=== PATIENT | female | born 1960 | race Caucasian/White ===

== ENCOUNTER 2016-08-31 12:35 | Emergency (ER) | payer OTHER ==
[~2016-08-31 12:35] MED LIST: B121000P IM; C5 PO; CELEXA20 PO; COR40 PO; DIL4TAB PO; ESTRACE1 MG PO; FIORICET OR; KLONO1 PO; LOTE5 PO; METHATAB40 PO; METHOC500B PO; MOBIC15 MG PO; NORV25 PO; OXYCOD PO; PERCOCET1 TAB PO; PRIN2.5 PO; PROAIR HFA INH; PROTONIX20 MG PO; TYLENOL PM; ZOFRAN4 PO
[2016-08-31 13:25] LABS: BASOPHILS 0.2 %; BASOPHILS ABSOLUTE 0.02 10/3/uL (0.0-0.16); EOSINOPHILS 0.8 %; EOSINOPHILS ABSOLUTE 0.07 10/3/uL (0.0-0.53); ER CBC TAT 0 Hrs 03 Mins; HEMATOCRIT 42.6 % (36.0-48.0); HEMOGLOBIN 13.6 g/dL (12.0-16.0); IMMATURE GRANULOCYTES 0.1 %; IMMATURE GRANULOCYTES ABSOLUTE 0.01 10/3/uL (0.0-0.11); LYMPHOCYTES 22.8 %; LYMPHOCYTES ABSOLUTE 1.99 10/3/uL (0.67-4.30); MEAN CORPUS HGB CONC 31.9 g/dL (32.0-36.0); MEAN CORPUSCULAR HEMOGLOB 26.6 pg (26.0-34.0); MEAN CORPUSCULAR VOLUME 83.2 fL (80-100); MEAN PLATELET VOLUME 9.3 fL (9.2-13.0); MONOCYTES 4.6 %; NEUTROPHILS 71.5 %; NEUTROPHILS ABSOLUTE 6.23 10/3/uL (2.02-8.40); PLATELET COUNT 367 10/3/uL (150-400); RBC DISTRIBUTION WIDTH 13.8 % (12.0-16.0); RED CELL COUNT 5.12 10/6/uL (4.0-5.6); WHITE BLOOD CELLS 8.7 10/3/uL (4.5-10.5)
[2016-08-31 13:26] LABS: MANUAL DIFF NO %
[2016-08-31 13:37] LABS: BUN (BLOOD UREA NITROGEN) 9 MG/DL (6-23); CALCIUM, SERUM 9.6 MG/DL (8.5-10.4); CHLORIDE, SERUM 109 MMOL/L (96-112); CO2 (CARBON DIOXIDE) 28 MMOL/L (24-34); CREATININE 1.05 MG/DL (0.55-1.02); GFR AFRICAN AMERICAN 70 ML/MIN (>=60); GFR NON AFRICAN AMERICAN 60 ML/MIN (>=60); GLUCOSE, SERUM 115 MG/DL (60-99); POTASSIUM, SERUM 3.7 MMOL/L (3.5-5.3); SODIUM, SERUM 144 MMOL/L (135-148)
[2016-08-31 14:04] LABS: SED RATE 51 MM/HR (0-20)
== END 2016-08-31 14:45 | disposition home or self-care (01) ==
LOC: ER 12:35
PROVIDERS: Physician Assistant
DX: R51 Headache (principal); Z88.2 Allergy status to sulfonamides; Z79.899 Other long term (current) drug therapy
CPT/HCPCS: 70450; 80048; 85025; 85652; 99284; A9270-GY

== ENCOUNTER 2016-09-12 12:26 | Emergency (ER) | payer OTHER ==
[2016-09-12 12:49] LABS: BASOPHILS 0.1 %; BASOPHILS ABSOLUTE 0.01 10/3/uL (0.0-0.16); EOSINOPHILS 1.8 %; EOSINOPHILS ABSOLUTE 0.18 10/3/uL (0.0-0.53); HEMATOCRIT 39.4 % (36.0-48.0); HEMOGLOBIN 12.4 g/dL (12.0-16.0); IMMATURE GRANULOCYTES 0.2 %; IMMATURE GRANULOCYTES ABSOLUTE 0.02 10/3/uL (0.0-0.11); LYMPHOCYTES 22.1 %; LYMPHOCYTES ABSOLUTE 2.25 10/3/uL (0.67-4.30); MANUAL DIFF NO %; MEAN CORPUS HGB CONC 31.5 g/dL (32.0-36.0); MEAN CORPUSCULAR HEMOGLOB 26.3 pg (26.0-34.0); MEAN CORPUSCULAR VOLUME 83.5 fL (80-100); MEAN PLATELET VOLUME 9.2 fL (9.2-13.0); MONOCYTES 7.7 %; MONOCYTES ABSOLUTE 0.78 10/3/uL (0.21-1.20); NEUTROPHILS 68.1 %; NEUTROPHILS ABSOLUTE 6.95 10/3/uL (2.02-8.40); PLATELET COUNT 291 10/3/uL (150-400); RBC DISTRIBUTION WIDTH 14.4 % (12.0-16.0); RED CELL COUNT 4.72 10/6/uL (4.0-5.6); WHITE BLOOD CELLS 10.2 10/3/uL (4.5-10.5)
[2016-09-12 12:56] LABS: PARTIAL THROMBO TIME 28.7 SEC (22.5-37.2); PROTIME (NOT ORD) 13.3 SEC (12.0-14.5)
[2016-09-12 13:07] LABS: BUN (BLOOD UREA NITROGEN) 12 MG/DL (6-23); CALCIUM, SERUM 8.8 MG/DL (8.5-10.4); CHEST PAIN PROFILE TAT 0 Hrs 22 Mins; CHLORIDE, SERUM 106 MMOL/L (96-112); CO2 (CARBON DIOXIDE) 29 MMOL/L (24-34); CREATININE 0.89 MG/DL (0.55-1.02); GFR AFRICAN AMERICAN 85 ML/MIN (>=60); GFR NON AFRICAN AMERICAN 73 ML/MIN (>=60); POTASSIUM, SERUM 4.3 MMOL/L (3.5-5.3); SODIUM, SERUM 140 MMOL/L (135-148); TROPONIN I 0.02 NG/ML (<0.05)
[2016-09-12 13:09] LABS: GLUCOSE, SERUM 84 MG/DL (60-99)
[2016-09-12] MEDS ORDERED: NEUR600 PO (14:05)
[2016-09-12] MEDS ORDERED: ASABAYER PO (14:05)
[2016-09-12] MEDS ORDERED: PRIN2.5 PO (14:05)
[2016-09-12] MEDS ORDERED: DOX10 PO (14:05)
[2016-09-12] MEDS ORDERED: PRISTIQ50 MG PO (14:06)
[2016-09-12] MEDS ORDERED: LOP25 PO (14:06)
[2016-09-12] MEDS ORDERED: TRAZ100 PO (14:06)
[2016-09-12] MEDS ORDERED: PRAVAC PO (14:06)
[2016-09-12] MEDS ORDERED: TRILEP300 PO (14:07)
[2016-09-12] MEDS ORDERED: NORCO1 TA2 PO (14:08)
== END 2016-09-12 14:48 | disposition home or self-care (01) ==
LOC: ER 12:26
PROVIDERS: Emergency Medicine
DX: R55 Syncope and collapse (principal); G50.0 Trigeminal neuralgia; I10 Essential (primary) hypertension; Z88.2 Allergy status to sulfonamides; Z79.82 Long term (current) use of aspirin; Z79.899 Other long term (current) drug therapy
CPT/HCPCS: 71010; 80048; 83735; 84484; 85025; 85610; 85730; 92950; 93005; 96374; 96375; 99284

== ENCOUNTER 2016-09-14 20:18 | Inpatient (IN) | payer OTHER ==
--- NOTE | ~2016-09-14 | CN ---
Consultation Report [facility] [address] [place]. [address] NAME: JIM JORDAN : 62 STATUS : ADM Tabitha PAT#: [id number] AGE: 55 ADM/REG DATE : 09/14/16 MR#: [id number] REPORT SERV DATE: 09/15/16 DICTATED BY: DATE: REPORT STATUS : Draft TRANSCRIBED BY: MODL DATE: 09/15/16 NEUROLOGY CONSULTATION DATE OF CONSULTATION: 09/15/2016 REASON FOR CONSULT: Headache as well as loss of consciousness episode. HISTORY OF PRESENT ILLNESS: This is a 55-year-old female presented to [facility] secondary to three week duration of headache. The patient reports the headache is always on the right side of the head from the cervical area radiating toward the face. The patient reports the pain as sharp, lasting anywhere from one to two minutes with frequent attacks. The patient otherwise denies tearing, conjunctiva, erythema, and denies any conjunctival injection. Denies any runny nose associated with this symptom. The patient reports episodes of frequent without relieving or aggravating factors. Symptoms occurred while the patient was off hydrocodone medications. The patient's symptom has been ongoing for the past three to four weeks. The patient denies photophobia, phonophobia, nausea, vomiting. Denies similar kind of headache in the past. The patient denies focal weakness or numbness. Denies dysarthria, dysphagia, or language difficulties. The patient denies diplopia. The patient does have a history of recent frequent loss of consciousness episode. The patient reports symptoms started again in the past three to four weeks, occur roughly 10 times over the past three to four weeks. The patient's most severe symptom occur on 09/14/2016 for which the patient suffered three loss of consciousness episodes, episodes are usually one to two minutes in duration with sometimes associated with shaking episodes. The patient was previously evaluated by ENT and was placed on trial of Trileptal, which she does not appear to have any improvement of the headache duration or characteristics. The patient denies any recent fever, chills, nausea, vomiting, chest pain, shortness of breath, or any other recent illness. The patient does have recent change in medication. The patient being placed on Trileptal as well as stop hydrocodone. The patient in addition reports stressful events. The patient recently hospitalized at [facility] for depression as well as anxiety. The patient reports that been very stressful for her. This occur in June. The patient otherwise denies any other changes in medication region. The patient denies any family history of headache. REVIEW OF SYSTEMS: The patient's review of systems negative except for those mentioned in the HPI. PAST MEDICAL HISTORY: Significant for depression as well as anxiety with recent hospitalization for depression and anxiety. The patient apparently also has had history of suicide attempt, history of obstructive sleep apnea, history of lung nodules as well as multinodular goiter, hypertension, history of previous headache and syncopal episodes per medical records. ALLERGIES: THE PATIENT WAS NOTED TO HAVE ALLERGY TO SULFA MEDICATION. Consultation Report [address] [address] NAME: JIM JORDAN : 62 STATUS : ADM Tabitha PAT#: [id number] AGE: 55 ADM/REG DATE : 09/14/16 MR#: [id number] REPORT SERV DATE: 09/15/16 DICTATED BY: DATE: REPORT STATUS : Draft TRANSCRIBED BY: MODL DATE: 09/15/16 SOCIAL HISTORY: Denies tobacco, alcohol, or recreational drug usage. FAMILY HISTORY: Significant for congestive heart failure as well as coronary artery disease. MEDICATIONS: The patient's home medication consists of aspirin, Pristiq, doxepin, Neurontin, Bourbon, lisinopril, Lopressor, Trileptal, pravastatin, and trazodone. PHYSICAL EXAMINATION: VITAL SIGNS: Overnight, the patient was noted to have vital signs with T-max of 99.7, heart rates of 61 to 88, respirations of 18 to 20, and blood pressure of 98 to 155 over 52 to 88. GENERAL: The patient is well developed, well nourished, in no acute distress. CARDIOVASCULAR: Regular rate and rhythm. No carotid bruits were otherwise auscultated. PULMONARY: Clear to auscultation bilaterally. NEUROLOGICAL: Generally, the patient is alert, oriented to person, place, year, and month, and follows simple and two-step commands. No dysarthria. No aphasia. Intact registration and recall. Cranial nerves 2 through 12. Pupils equal, round, and reactive to light. Extraocular eye movement was noted to be intact with intact peripheral vision. The patient demonstrated symmetrical facial expression and sensation. Midline tongue. Normal palatal movement. Normal hearing. The patient demonstrated 5/5 bilateral upper and lower extremity strength. Normal muscle, bulk, and tone. Deep tendon reflex was 2+ throughout. Downgoing toe on bilateral plantar reflexes. Normal yspjul-ey-ofih examination without ataxia. Normal gait and normal station at the time of evaluation. LABORATORY DATA: Laboratory study demonstrated white blood cell count of 9.0, hemoglobin of 13.1, hematocrit of 41.3, and platelet count of 305. Sedimentation rate of 37. Chemistry panel: Sodium 137, potassium 3.6, chloride 103, bicarb 29, BUN of 11, creatinine of 0.85, glucose of 94, calcium of 9.1. Folate of 7.8. Vitamin B12 of 421. TSH of 2.8, free T4 is 0.8. Urine drug screen is otherwise positive for opiates. Urinalysis demonstrated negative leukocyte esterase, negative nitrite. At time of evaluation, the patient was noted to have CT scan of her brain, which demonstrated no acute process. IMPRESSION: 1. Headache. 2. Loss of consciousness episodes. The patient reports headache mostly in the right posterior area involving greater occipital nerve territory with headache duration of short and frequent episodes. Headache concern for trigeminal cephalalgia versus a greater occipital neuralgia versus possible drug or medication withdrawal induce- headache. As the patient's headache is not relieved by Trileptal, we will discontinue Trileptal. We will start the patient on trial of Depakote as well as Indocin. We will obtain MRI of her brain and C-spine without contrast. If the patient's headache does not have any significant improvement, we will consider a greater occipital nerve block for headache relief. We will also obtain EEG for loss of consciousness episodes. RECOMMENDATION: 1. Discontinue Trileptal. Consultation Report [place] [id number] [place]. [address] NAME: JIM JORDAN : 62 STATUS : ADM Tabitha PAT#: [id number] AGE: 55 ADM/REG DATE : 09/14/16 MR#: [id number] REPORT SERV DATE: 09/15/16 DICTATED BY: DATE: REPORT STATUS : Draft TRANSCRIBED BY: MODL DATE: 09/15/16 2. Indocin 25 mg p.o. t.i.d. 3. Depakote 125 mg IV b.i.d. 4. MRI of the brain and C-spine without contrast. 5. EEG. [facility]/MODL Matt Newsome MD / [id number] CC: Landon Coe II, MD
--- NOTE | ~2016-09-14 | DS ---
Discharge Summary [facility] [address] [place]. [address] NAME: JIM JORDAN : 62 STATUS : DIS IN PAT#: [id number] AGE: 55 ADM/REG DATE : 09/14/16 MR#: [id number] REPORT SERV DATE: 09/26/16 DICTATED BY: TYLER YAÑEZ DATE: 09/19/16 REPORT STATUS : Draft TRANSCRIBED BY: TEODORO DATE: 09/19/16 ADMISSION DATE: 09/14/2016 DISCHARGE DATE: 09/19/2016 DIAGNOSES: 1. An occipital neuralgia causing intractable headache. 2. Syncope secondary to above, resolved. 3. Leukocytosis, resolved. 4. Hypertension. FOLLOWUP: 1. The patient is to follow up with her primary neurologist, Dr. Boateng for occipital neuralgia management and for possible nerve block injection recommended by hospital neurologist. 2. The patient is to follow up with primary care in one to two weeks. 3. The patient has been informed no driving. DISCHARGE MEDICATIONS: 1. Aspirin 325 mg p.o. daily. 2. Depakote 250 mg p.o. b.i.d. 3. Doxepin 10 mg p.o. q.h.s. 4. Pristiq 50 mg p.o. daily per home dose. 5. Neurontin 600 mg p.o. t.i.d. 6. Lisinopril 2.5 mg p.o. daily. 7. Metoprolol tartrate 12.5 mg p.o. b.i.d. 8. Pravachol 20 mg p.o. q.h.s. 9. Indocin 50 mg p.o. breakfast for two days only. 10.Trazodone 100 mg p.o. q.h.s. 11.Percocet 5/325 mg one tablet p.o. q.6 hours p.r.n., only 20 tablets prescribed. HOSPITALISTS: 1. Landon Sinha M.D. 2. Landon Coe II, M.D. CONSULTANTS: Neurology Dr. Matt Newsome, and Dr. Tommy Palafox. HOSPITAL COURSE: This is a 55-year-old female with a past medical history of intractable recurrent headaches for which on previous admission was suspected to be secondary to untreated obstructive sleep apnea. Also, the patient has a history of hypertension and obesity, presented with recurrent intractable headaches with syncope. She was admitted to the Hospitalist Service, initially seen by Dr. Coe with a Neurology consultation. Family were concerned of possible seizure-like activity prior to her admission. The patient had an EEG that revealed no focal abnormalities, no seizure activity or seizure discharges noted. The patient also had multiple imaging studies which included a CT of the brain without contrast that showed no acute intracranial abnormality, but had a stable old lacunar infarct versus Virchow-Lester space in the right basal ganglia. Discharge Summary [place] [id number] [facility] [place]. [address] NAME: JIM JORDAN : 62 STATUS : DIS IN PAT#: [id number] AGE: 55 ADM/REG DATE : 09/14/16 MR#: [id number] REPORT SERV DATE: 09/26/16 DICTATED BY: TYLER YAÑEZ DATE: 09/19/16 REPORT STATUS : Draft TRANSCRIBED BY: TEODORO DATE: 09/19/16 Also the patient had MRI of the brain and cervical spine that revealed a small amount of scattered nonspecific gliosis secondary to small vessel ischemic events. No acute infarction and no mass effect. No hydrocephalus. Also, the neck revealed some mild foraminal stenoses of bilateral C5-C6, but otherwise nondiagnostic. Due to her intractable headache the patient required multiple medications for control. She was initiated on Indocin as well as Depakote, and her Neurontin was continued and also the patient required narcotic medication. It was suspected the patient most likely has occipital neuralgia; however, prior to this conclusion the patient did have a lumbar puncture on 09/17/2016, ordered by Neurology with a normal opening pressure. The patient had some mild pleocytosis; however, cryptococcal antigen was negative. No signs of meningitis. However, the patient's HSV PCR was still pending at the time of discharge. Neurology recommended for the patient to follow up as an outpatient in Neurology Clinic by a Neurology Specialist for the nerve block injections. The patient states that she has an appointment with Dr. Boateng, neurologist, and therefore Dr. Palafox recommended for the patient to follow up with Dr. Boateng for workup of nerve block injections versus Botox. Overall the patient's symptoms improved during her hospital course. The patient also was advised no driving until approved by her neurologist. She did have an echocardiogram and had a normal ejection fraction of 55%. The patient was discharged to home in stable condition to follow up as an outpatient. This discharge required greater than 30 minutes. ADDENDUM The patient will not be discharged with indomethacin. DICTATED BY: Janel BarriosH/TEODORO Tyler Yañez M.D. / [id number] / [id number] CC: Janel Barrios MD Lisa Brooks, D.W. [facility]
--- NOTE | ~2016-09-14 | HP ---
History And Physical [place] [id number] [facility] [place]. [address] NAME: JIM BURGOS : 62 STATUS : REG ER PAT#: [id number] AGE: 55 ADM/REG DATE : 09/14/16 MR#: [id number] REPORT SERV DATE: 09/15/16 DICTATED BY: CHALINO ESCOBAR DATE: 09/14/16 REPORT STATUS : Draft TRANSCRIBED BY: MODL DATE: 09/14/16 DATE OF ADMISSION: 09/14/2016 POINT OF ENTRY: [facility] Emergency Department. PRIMARY CARE PHYSICIAN: Dr. Oma Sánchez. PRIMARY NEUROLOGIST: Dr. Sarabia. CHIEF COMPLAINT: Headaches and syncope. HISTORY OF PRESENT ILLNESS: Ms. Burgos is a 55-year-old female with a history of hypertension, multinodular goiter as well as a prior admission for suicide attempt who presents to the emergency department today with report of a three to four-week history of intractable right-sided headaches and recurrent syncopal episodes. Per review of [facility], it appears the patient was admitted to our service in 05/2013 for very similar complaints of headaches and syncopal episodes. At that time, she had an extensive workup including neurology evaluation, CT scan of the brain, MRI of the brain, echocardiogram, carotid arterial Dopplers as well as EEG, all of which were unremarkable. It was felt that her headaches were likely due to untreated obstructive sleep apnea. Patient states that for the past three to four weeks, she has had intractable right-sided headaches that are intermittent in nature. They occur every three to four minutes and consist of a short-duration, sharp and stabbing-type sensation on the right side of her head. She denies any associated nausea, vomiting, vision changes, photophobia, or phonophobia. She has undergone extensive workup as ordered by Dr. Sánchez as well as an oral furnace installer in the community including MRI done at [facility] that was reportedly negative as well as a temporal artery biopsy that also was reportedly negative. She was tentatively diagnosed with trigeminal neuralgia, placed on Trileptal and Neurontin; however, these medications have had no effect whatsoever on her headaches. Patient also states in the past three to four weeks she has also had recurrent syncopal episodes. These have been witnessed by her , typically unconscious for 30 seconds to about two minutes. states that she is typically somewhat confused and lethargic immediately after regaining consciousness and today she had a loss of bladder function. also states occasionally with her syncopal episode, she will have some convulsive- type activity. Patient presented to the emergency department. The labs were unremarkable, an EKG was also unremarkable, and CT scan of brain was not undertaken nor was urinalysis, drug screen, or chest x-ray. ER physician talked with Dr. Sarabia who recommended admission to the Hospitalist Service, placement on Neurontin; however, she is already on Neurontin as well as recommended MRI in the morning. REVIEW OF SYSTEMS: History And Physical [address] [address] NAME: JIM BURGOS : 62 STATUS : REG ER PAT#: [id number] AGE: 55 ADM/REG DATE : 09/14/16 MR#: [id number] REPORT SERV DATE: 09/15/16 DICTATED BY: CHALINO ESCOBAR DATE: 09/14/16 REPORT STATUS : Draft TRANSCRIBED BY: TEODORO DATE: 09/14/16 Comprehensive review of systems otherwise negative unless listed in history of present illness. PREVIOUS MEDICAL HISTORY: 1. Hypertension. 2. Multinodular goiter. 3. History of lung nodules. 4. Obstructive sleep apnea. 5. History of suicide attempt. 6. Previous admission for headaches and syncopal episodes, workup thus far unremarkable. 7. Presumed diagnosis of trigeminal neuralgia. SURGICAL HISTORY: 1. Left total knee. 2. Abdominal hysterectomy. 3. Hernia repair surgery. 4. C5-C7 ACDF. ALLERGIES: SULFA DRUGS. HOME MEDICATIONS: Pending at time of dictation. SOCIAL HISTORY: She denies any tobacco, alcohol, or illicits. FAMILY HISTORY: Mother with congestive heart failure. Father with congestive heart failure and coronary artery disease. LABS AND IMAGIN. White count 11.4, hemoglobin 13.5, hematocrit 42.2, platelets 295. 2. Sodium is 139, potassium 4.0, chloride 104, carbon dioxide 28, BUN 12, creatinine 0.85, glucose is 111, calcium is 8.9. 3. EKG per my review shows normal sinus rhythm without any acute ischemia or infarction. PHYSICAL EXAMINATION: VITAL SIGNS: Temperature is 97.6 degrees Fahrenheit, pulse is 80, respirations 18, saturating 93% on room air, blood pressure 130/72. GENERAL: Patient is awake, alert, in no acute distress, resting comfortably in bed. She is a well-developed, well-nourished, middle-aged female. is at bedside. HEENT: Atraumatic and normocephalic. Moist mucous membranes. Pupils are equal, round, reactive to light and accommodation. Extraocular eye movements intact. No scleral icterus. Neck: No jugular venous distention or carotid bruits. CARDIAC: Regular rate and rhythm. No murmurs, rubs, or gallops. Normal S1, S2. LUNGS: Clear to auscultation bilaterally. No wheezes, rhonchi, or rales. ABDOMEN: Soft, nontender, nondistended with good bowel sounds. No rebound, guarding, or rigidity. EXTREMITIES: Warm and well perfused. No cyanosis, clubbing, or edema. SKIN: Warm and dry. History And Physical [address] [address] NAME: JIM BURGOS : 62 STATUS : REG ER PAT#: [id number] AGE: 55 ADM/REG DATE : 09/14/16 MR#: [id number] REPORT SERV DATE: 09/15/16 DICTATED BY: CHALINO ESCOBAR DATE: 09/14/16 REPORT STATUS : Draft TRANSCRIBED BY: TEODORO DATE: 09/14/16 PSYCH: Affect appropriate. NEURO: Alert and oriented x3. Cranial nerves II through XII are grossly intact. Speech is normal. Gait not assessed. ASSESSMENT AND PLAN: Ms. Burgos is a 55-year-old female who presents with a three-week history of intractable right-sided headaches and recurrent syncopal episodes. PROBLEM LIST: 1. Intractable right-sided headache. 2. Recurrent syncopal episodes. 3. Concern for possible seizure-like activity. 4. Leukocytosis. PLAN: 1. Intractable right-sided headaches. Patient has had had extensive negative workup thus far including MRI and temporal artery biopsy. Her headaches have not been responsive to Trileptal or Neurontin as well. We will admit patient to Hospitalist Service. We will check a stat CT scan of the brain and defer further testing to Neurology. I will try to obtain records of the MRI and temporal artery biopsy from [facility]. 2. Syncopal episode versus seizures. She has had a negative evaluation in 2013 for recurrent syncopal episodes. We will have to repeat this workup including continued cardiac telemetry monitoring, orthostatic vital signs, cardiac enzymes, echocardiogram, and carotid arterial Doppler. Again, we will defer to Neurology whether additional neurologic evaluation they would recommend for seizures versus syncopal episodes including possible EEG or repeat MRI. 3. Leukocytosis, unclear etiology. Checking urinalysis and chest x-ray. 4. DVT prophylaxis, Lovenox subcutaneously. CODE STATUS: Patient wishes to be full code. [facility]/MODL Chalino Escobar MD / [id number] CC: Liz Sarabia M.D.
--- NOTE | ~2016-09-14 | EEG ---
Electroencephalogram [facility] [address] [place]. [address] NAME: JIM JORDAN : 62 STATUS : ADM Tabitha PAT#: [id number] AGE: 55 ADM/REG DATE : 09/14/16 MR#: [id number] REPORT SERV DATE: 09/16/16 DICTATED BY: DATE: REPORT STATUS : Draft TRANSCRIBED BY: MODL DATE: 09/16/16 NEUROLOGY EEG REPORT CLINICAL INDICATION: Loss of consciousness episode. DESCRIPTION: This EEG was performed using 10/20 electrode placement system. During the EEG study, the patient was noted to have symmetric background activity with predominant occipital rhythm of roughly 8 hertz. Photic stimulation was performed with appropriate driving response. Hyperventilation was not performed secondary to the patient's underlying medical condition. No focal abnormalities, seizure activity, or seizure discharge was otherwise noted. The patient achieved drowsy state. INTERPRETATION: This EEG study obtained during awake and drowsy state may be considered within normal limits. No focal abnormalities, seizure activity, or seizure discharge was otherwise noted. Clinical correlation is recommended. [facility]/MODL Matt Newsome MD / [id number] CC: Landon Coe II, MD
[~2016-09-14 20:18] MED LIST changes: +ASABAYER PO; +DOX10 PO; +LOP25 PO; +NEUR600 PO; +NORCO1 TA2 PO; +PRAVAC PO; +PRISTIQ50 MG PO; +TRAZ100 PO; +TRILEP300 PO
[2016-09-14 21:50] LABS: BASOPHILS 0.1 %; BASOPHILS ABSOLUTE 0.01 10/3/uL (0.0-0.16); EOSINOPHILS 2.2 %; EOSINOPHILS ABSOLUTE 0.25 10/3/uL (0.0-0.53); HEMATOCRIT 42.2 % (36.0-48.0); HEMOGLOBIN 13.5 g/dL (12.0-16.0); IMMATURE GRANULOCYTES 0.2 %; IMMATURE GRANULOCYTES ABSOLUTE 0.02 10/3/uL (0.0-0.11); LYMPHOCYTES 23.4 %; LYMPHOCYTES ABSOLUTE 2.67 10/3/uL (0.67-4.30); MEAN CORPUSCULAR HEMOGLOB 26.7 pg (26.0-34.0); MEAN CORPUSCULAR VOLUME 83.6 fL (80-100); MEAN PLATELET VOLUME 9.7 fL (9.2-13.0); MONOCYTES 5.6 %; MONOCYTES ABSOLUTE 0.64 10/3/uL (0.21-1.20); NEUTROPHILS 68.5 %; PLATELET COUNT 295 10/3/uL (150-400); RBC DISTRIBUTION WIDTH 14.5 % (12.0-16.0); RED CELL COUNT 5.05 10/6/uL (4.0-5.6); WHITE BLOOD CELLS 11.4 10/3/uL (4.5-10.5)
[2016-09-14 21:51] LABS: MANUAL DIFF NO %
[2016-09-14 22:03] LABS: BUN (BLOOD UREA NITROGEN) 12 MG/DL (6-23); CALCIUM, SERUM 8.9 MG/DL (8.5-10.4); CHLORIDE, SERUM 104 MMOL/L (96-112); CO2 (CARBON DIOXIDE) 28 MMOL/L (24-34); CREATININE 0.85 MG/DL (0.55-1.02); GFR AFRICAN AMERICAN 90 ML/MIN (>=60); GFR NON AFRICAN AMERICAN 78 ML/MIN (>=60); SODIUM, SERUM 139 MMOL/L (135-148)
[2016-09-14 22:05] LABS: GLUCOSE, SERUM 111 MG/DL (60-99)
[2016-09-15 01:03] LABS: ALBUMIN 3.2 G/DL (3.5-5.0); ALKALINE PHOSPHATASE 122 U/L (45-117); DIRECT BILIRUBIN < 0.1 MG/DL (0.0-0.4); INDIRECT BILIRUBIN(NOT ORDER) 0.1 MG/DL (0.1-0.9); SGOT(AST) 11 U/L (5-40); SGPT(ALT) 18 U/L (5-65); TOTAL BILIRUBIN 0.2 MG/DL (0-1.2); TOTAL PROTEIN 7.4 G/DL (6.0-8.5); TROPONIN I <0.02 NG/ML (<0.05)
[2016-09-15 06:33] LABS: BASOPHILS 0.1 %; BASOPHILS ABSOLUTE 0.01 10/3/uL (0.0-0.16); EOSINOPHILS ABSOLUTE 0.18 10/3/uL (0.0-0.53); HEMATOCRIT 41.3 % (36.0-48.0); HEMOGLOBIN 13.1 g/dL (12.0-16.0); IMMATURE GRANULOCYTES 0.2 %; IMMATURE GRANULOCYTES ABSOLUTE 0.02 10/3/uL (0.0-0.11); LYMPHOCYTES 28.9 %; LYMPHOCYTES ABSOLUTE 2.59 10/3/uL (0.67-4.30); MEAN CORPUS HGB CONC 31.7 g/dL (32.0-36.0); MEAN CORPUSCULAR HEMOGLOB 26.5 pg (26.0-34.0); MEAN CORPUSCULAR VOLUME 83.4 fL (80-100); MEAN PLATELET VOLUME 9.4 fL (9.2-13.0); MONOCYTES 6.1 %; MONOCYTES ABSOLUTE 0.55 10/3/uL (0.21-1.20); NEUTROPHILS 62.7 %; NEUTROPHILS ABSOLUTE 5.61 10/3/uL (2.02-8.40); PLATELET COUNT 305 10/3/uL (150-400); RBC DISTRIBUTION WIDTH 14.5 % (12.0-16.0); RED CELL COUNT 4.95 10/6/uL (4.0-5.6)
[2016-09-15 06:36] LABS: MANUAL DIFF NO %
[2016-09-15 07:12] LABS: AMPHETAMINES (NOT ORD) NEG (NEG); BARBITURATES (NOT ORDERED NEG (NEG); BENZODIAZEPINES (NOT ORD) NEG (NEG); CANNABINOIDS (THC) NEG (NEG); COCAINE (NOT ORDERED) NEG (NEG); OPIATES POS (NEG); PHENCYCLIDINE(PCP) NEG (NEG); TRICYCLICS NEG (NEG)
[2016-09-15 07:12] LABS: BUN (BLOOD UREA NITROGEN) 11 MG/DL (6-23); CALCIUM, SERUM 9.1 MG/DL (8.5-10.4); CHLORIDE, SERUM 103 MMOL/L (96-112); CO2 (CARBON DIOXIDE) 29 MMOL/L (24-34); CREATININE 0.85 MG/DL (0.55-1.02); GFR AFRICAN AMERICAN 90 ML/MIN (>=60); GFR NON AFRICAN AMERICAN 78 ML/MIN (>=60); GLUCOSE, SERUM 94 MG/DL (60-99); POTASSIUM, SERUM 3.6 MMOL/L (3.5-5.3); SODIUM, SERUM 137 MMOL/L (135-148)
[2016-09-15 07:16] LABS: ACETAMINOPHEN LEVEL (TYLENOL) < 2.0 MCG/ML (10.0-20.0); ALCOHOL < 10 MG/DL (0); C-REACTIVE PROTEIN 20.7 MG/L (<8.0); FOLATE 7.8 NG/ML (>5.2); SALICYLATE < 1.7 MG/DL (-)
[2016-09-15 07:38] LABS: ASCORBIC ACID (UR NOT ORDER) NEG (NEG); BILIRUBIN, URINE NEGATIVE (NEG); KETONE, URINE NEGATIVE (NEG); LEUKOCYTE ESTERASE(NOT OR NEG (NEG); WBC (NOT ORDERED) (RFLEX) 1 (0-5)
[2016-09-15 08:17] LABS: SED RATE 37 MM/HR (0-20)
[2016-09-16 06:59] LABS: BASOPHILS 0.3 %; BASOPHILS ABSOLUTE 0.02 10/3/uL (0.0-0.16); EOSINOPHILS 3.7 %; EOSINOPHILS ABSOLUTE 0.26 10/3/uL (0.0-0.53); HEMATOCRIT 38.1 % (36.0-48.0); HEMOGLOBIN 11.9 g/dL (12.0-16.0); IMMATURE GRANULOCYTES 0.1 %; IMMATURE GRANULOCYTES ABSOLUTE 0.01 10/3/uL (0.0-0.11); LYMPHOCYTES 28.7 %; LYMPHOCYTES ABSOLUTE 2.03 10/3/uL (0.67-4.30); MEAN CORPUS HGB CONC 31.2 g/dL (32.0-36.0); MEAN CORPUSCULAR HEMOGLOB 26.2 pg (26.0-34.0); MEAN CORPUSCULAR VOLUME 83.7 fL (80-100); MEAN PLATELET VOLUME 9.3 fL (9.2-13.0); MONOCYTES 8.6 %; MONOCYTES ABSOLUTE 0.61 10/3/uL (0.21-1.20); NEUTROPHILS 58.6 %; NEUTROPHILS ABSOLUTE 4.14 10/3/uL (2.02-8.40); PLATELET COUNT 260 10/3/uL (150-400); RBC DISTRIBUTION WIDTH 14.6 % (12.0-16.0); RED CELL COUNT 4.55 10/6/uL (4.0-5.6); WHITE BLOOD CELLS 7.1 10/3/uL (4.5-10.5)
[2016-09-16 07:01] LABS: MANUAL DIFF NO %
[2016-09-16 07:10] LABS: BUN (BLOOD UREA NITROGEN) 14 MG/DL (6-23); CALCIUM, SERUM 8.5 MG/DL (8.5-10.4); CHLORIDE, SERUM 108 MMOL/L (96-112); CO2 (CARBON DIOXIDE) 28 MMOL/L (24-34); CREATININE 0.71 MG/DL (0.55-1.02); GFR AFRICAN AMERICAN 112 ML/MIN (>=60); GFR NON AFRICAN AMERICAN 97 ML/MIN (>=60); GLUCOSE, SERUM 89 MG/DL (60-99); POTASSIUM, SERUM 4.2 MMOL/L (3.5-5.3); SODIUM, SERUM 142 MMOL/L (135-148)
[2016-09-16 11:25] LABS: ANA PATTERN SPECKLED
[2016-09-17 05:45] LABS: BASOPHILS 0.1 %; BASOPHILS ABSOLUTE 0.01 10/3/uL (0.0-0.16); EOSINOPHILS 4.1 %; HEMATOCRIT 36.3 % (36.0-48.0); HEMOGLOBIN 11.5 g/dL (12.0-16.0); IMMATURE GRANULOCYTES 0.3 %; IMMATURE GRANULOCYTES ABSOLUTE 0.02 10/3/uL (0.0-0.11); LYMPHOCYTES 28.7 %; MEAN CORPUS HGB CONC 31.7 g/dL (32.0-36.0); MEAN CORPUSCULAR HEMOGLOB 26.7 pg (26.0-34.0); MEAN CORPUSCULAR VOLUME 84.2 fL (80-100); MEAN PLATELET VOLUME 9.4 fL (9.2-13.0); MONOCYTES 4.9 %; MONOCYTES ABSOLUTE 0.36 10/3/uL (0.21-1.20); NEUTROPHILS 61.9 %; NEUTROPHILS ABSOLUTE 4.53 10/3/uL (2.02-8.40); PLATELET COUNT 277 10/3/uL (150-400); RBC DISTRIBUTION WIDTH 14.3 % (12.0-16.0); RED CELL COUNT 4.31 10/6/uL (4.0-5.6); WHITE BLOOD CELLS 7.3 10/3/uL (4.5-10.5)
[2016-09-17 05:49] LABS: MANUAL DIFF NO %
[2016-09-17 05:57] LABS: BUN (BLOOD UREA NITROGEN) 12 MG/DL (6-23); CALCIUM, SERUM 9.1 MG/DL (8.5-10.4); CHLORIDE, SERUM 110 MMOL/L (96-112); CO2 (CARBON DIOXIDE) 26 MMOL/L (24-34); CREATININE 0.74 MG/DL (0.55-1.02); GFR AFRICAN AMERICAN 106 ML/MIN (>=60); GFR NON AFRICAN AMERICAN 92 ML/MIN (>=60); SODIUM, SERUM 142 MMOL/L (135-148)
[2016-09-17 06:00] LABS: GLUCOSE, SERUM 125 MG/DL (60-99)
[2016-09-17 14:36] LABS: TOTAL PROTEIN, CSF 71.6 MG/DL (15-45)
[2016-09-17 15:00] LABS: CSF BASO 0 % (NO REF RANGE); CSF EOS 2 % (0-1); CSF LYMPH (NOT ORD) 74 % (28-96); CSF MONO 13 % (16-56); CSF SEGS (NOT ORD) 11 % (0-7)
[2016-09-17 15:01] LABS: CSF APPEARANCE (NOT ORD) CLEAR (CLEAR); CSF COLOR (NOT ORD) COLORLESS (COLORLESS); CSF RBC (NOT ORD) 208 MM3 (NO REFERENCE); CSF WBC (NOT ORD) 3 /uL (0-10); CSF XANTHROCHROMIA NEG (NEG)
[2016-09-19] MEDS ORDERED: PCET PO (11:08)
[2016-09-19] MEDS ORDERED: DEPAKOT250 PO (11:12)
[2016-09-19] MEDS ORDERED: INDO50 (11:14)
[2016-09-20 12:56] LABS: HSV DNA TYPE 1 Not Detected (NOTDET); HSV DNA TYPE 2 Not Detected (NOTDET)
== END 2016-09-19 12:18 | disposition home or self-care (01) | DRG 552 ==
LOC: ER 20:18 → 7NO 21:00
PROVIDERS: Internal Medicine; Nurse Practitioner Acute Care; Nurse Practitioner Family; Psychiatry & Neurology Neurology
PROC: 009U3ZX Drainage of Spinal Canal, Percutaneous Approach, Diagnostic (ICD-10-PCS; principal; 2016-09-17)
PROC: B01B1ZZ Fluoroscopy of Spinal Cord using Low Osmolar Contrast (ICD-10-PCS; 2016-09-17)
DX: M54.81 Occipital neuralgia (principal); Z68.41 Body mass index [BMI] 40.0-44.9, adult; I10 Essential (primary) hypertension; R51 Headache; R55 Syncope and collapse; G47.33 Obstructive sleep apnea (adult) (pediatric); E66.9 Obesity, unspecified; Z88.2 Allergy status to sulfonamides; Z79.82 Long term (current) use of aspirin; F32.9 Major depressive disorder, single episode, unspecified; F41.9 Anxiety disorder, unspecified
CPT/HCPCS: 62270; 70450; 70544; 70547; 70551; 71010; 72141; 77003; 80048; 80076; 80305; 80307; 81001; 82607; 82746; 82945; 84157; 84439; 84443; 84484; 85025; 85652; 86039; 86140; 87327; 87529; 87529-59; 88112; 89051; 93005; 93306; 93880; 95816; 99285; A9270-GY; C8929; Q9957